=== PATIENT | female | born 1990 | race Caucasian/White ===

== ENCOUNTER 2017-05-19 14:18 | Emergency (ER) | payer BC, OTHER ==
[~2017-05-19] VITALS: Ht 172.7 cm; Wt 127.0 kg
[~2017-05-19 14:18] MED LIST: GUIATUSS AC SY120 ML PO; PROVENTIL HFA6.7 GM INH
== END 2017-05-19 14:43 | disposition home or self-care (01) ==
LOC: ED 14:18
DX: Z00.8 Encounter for other general examination (principal)

== ENCOUNTER 2017-07-03 11:38 | Emergency (ER) | payer BC, OTHER ==
[~2017-07-03] VITALS: Ht 172.7 cm; Wt 127.0 kg
[2017-07-03] MEDS ORDERED: METHYLPREDNISOLO4 M1 PO (13:25)
[2017-07-03] MEDS ORDERED: TESSALON PERLE100 MG PO (13:25)
[2017-07-03] MEDS ORDERED: ZITHROMAX250 MG PO (13:25)
== END 2017-07-03 11:55 | disposition home or self-care (01) ==
LOC: ED 11:38
DX: Z00.8 Encounter for other general examination (principal)

== ENCOUNTER 2017-07-03 12:54 | Emergency (ER) | payer OTHER, BC ==
[~2017-07-03] VITALS: Ht 172.7 cm; Wt 127.0 kg
[2017-07-03] MEDS ORDERED: ZITHROMAX250 MG PO (13:25)
[2017-07-03] MEDS ORDERED: TESSALON PERLE100 MG PO (13:25)
[2017-07-03] MEDS ORDERED: METHYLPREDNISOLO4 M1 PO (13:25)
== END 2017-07-03 13:33 | disposition home or self-care (01) ==
LOC: ED 12:54
DX: J40 Bronchitis, not specified as acute or chronic (principal)
CPT/HCPCS: 99283

== ENCOUNTER 2017-08-10 12:14 | Emergency (ER) | payer OTHER ==
[~2017-08-10] VITALS: Ht 172.7 cm; Wt 127.0 kg
[~2017-08-10 12:14] MED LIST changes: +METHYLPREDNISOLO4 M1 PO; +TESSALON PERLE100 MG PO; +ZITHROMAX250 MG PO
[2017-08-10] MEDS ORDERED: KETOROLAC TROME10 MG PO (12:37)
[2017-08-10] MEDS ORDERED: BACLOFEN10 MG PO (12:37)
== END 2017-08-10 12:45 | disposition home or self-care (01) ==
LOC: ED 12:14
DX: M99.02 Segmental and somatic dysfunction of thoracic region (principal); M62.838 Other muscle spasm; F17.200 Nicotine dependence, unspecified, uncomplicated
CPT/HCPCS: 99283

== ENCOUNTER 2021-03-26 12:57 | Emergency (ER) | payer OTHER ==
[~2021-03-26] VITALS: Ht 172.7 cm; Wt 122.5 kg
[~2021-03-26 12:57] MED LIST changes: +BACLOFEN10 MG PO; +KETOROLAC TROME10 MG PO
--- OUTSIDE RECORDS SUMMARY | 2021-03-26 13:02 | XMS ---
PreManage Notification: MANDI ISIDRO Security Educational Aid Events No recent Security Events currently on file CRITERIA MET - Group Notification - 6 ED Visits in 6 Months - PDMP CARE PROVIDERS Mary Jane Cornelius Community Health Worker 03/18/2020-Current PHONE: [phone] Care Guidelines exist for the following facilities: [facility] ( 03/17/2019 ) Beto VISIT COUNT (12 MO.) [address] [place] TOTAL 14 NOTE: Visits indicate total known visits. ED/UCC VISIT TRACKING (12 MO.) 03/26/2021 12:[address] [facility] [place] TYPE: Emergency COMPLAINT: - HEADACHE 01/21/2021 21:41 Guest of a Guest [place] [facility] [place] TYPE: Emergency COMPLAINT: - constipated DIAGNOSES: - constipated 01/07/2021 09:24 [facility] TYPE: Emergency DIAGNOSES: - CONSTIPATION - Constipation, unspecified 12/16/2020 02:30 [facility] TYPE: Emergency DIAGNOSES: - Anal abscess - general 12/15/2020 22:43 [facility] [place] TYPE: Emergency DIAGNOSES: - Anal abscess - CYST 12/11/2020 17:55 Guest of a Guest [place] [facility] [place] TYPE: Emergency DIAGNOSES: - Other specified diseases of anus and rectum - POSS ABSCESS 12/05/2020 09:00 Guest of a Guest [facility] OR TYPE: Emergency DIAGNOSES: - Carpal tunnel syndrome, right upper limb - HAND PAIN 10/31/2020 14:01 [facility] OR TYPE: Emergency DIAGNOSES: - Contact with and (suspected) exposure to covid-19 - covid testing 09/29/2020 14:05 [facility] OR TYPE: Emergency DIAGNOSES: - Contact with and (suspected) exposure to covid-19 - SHORTNESS OF BREATH, FEVER - Shortness of breath 08/20/2020 12:18 [facility] OR TYPE: Emergency DIAGNOSES: - Contact with and (suspected) exposure to other viral communicable diseases - Scabies - SHORTNESS OF BREATH COVID 19 TEST + SCREENING 05/04/2020 17:08 [facility] TYPE: Emergency COMPLAINT: - COUGH, DIFF BREATHING - WEAKNESS - NASAL CONGESTION - HEADACHE DIAGNOSES: 0. Nasal congestion 1. Other seasonal allergic rhinitis 5. Nasal congestion 6. Nicotine dependence, cigarettes, uncomplicated 04/26/2020 10:50 [facility] [place] TYPE: Emergency DIAGNOSES: - Viral infection, unspecified - +SCREENING/SHORTNESS OF BREATH WEAK 03/31/2020 17:48 [facility] [place] TYPE: Emergency DIAGNOSES: - +SCREENING/HEADACHE, SOB, DIARRHEA, COUGH - Acute upper respiratory infection, unspecified - Contact with and (suspected) exposure to other viral communicable diseases 03/31/2020 17:01 [facility] [place] TYPE: Emergency DIAGNOSES: - +screening/cough, headache, diarrhea, sore throat INPATIENT VISIT TRACKING (12 MO.) No inpatient visits to display in this time frame [email or web address]
[2021-03-26] MEDS ORDERED: SUBOXONE 12 MG1 EACH SL (13:23)
== END 2021-03-26 15:45 | disposition home or self-care (01) ==
LOC: ED 12:57
DX: J06.9 Acute upper respiratory infection, unspecified (principal); Z20.822 Contact with and (suspected) exposure to COVID-19; F17.200 Nicotine dependence, unspecified, uncomplicated; Z88.5 Allergy status to narcotic agent
CPT/HCPCS: 99284; C9803; U0003

== ENCOUNTER 2022-06-01 14:08 | Emergency (ER) | payer OTHER ==
[~2022-06-01] VITALS: Ht 172.7 cm; Wt 159.7 kg
[~2022-06-01 14:08] MED LIST changes: +SUBOXONE 12 MG1 EACH SL
--- OUTSIDE RECORDS SUMMARY | 2022-06-01 14:12 | XMS ---
PreManage Notification: MANDI ISIDRO Security Wire Frame Lampshade Maker Events No recent Security Events currently on file CRITERIA MET - Group Notification CARE PROVIDERS Ashli Mary Jane Community Health Worker 03/18/2020-Current PHONE: [phone] Care Guidelines exist for the following facilities: [facility] ( 03/17/2019 ) Beto VISIT COUNT (12 MO.) 1 [facility] TOTAL 1 NOTE: Visits indicate total known visits. ED/UCC VISIT TRACKING (12 MO.) 06/01/2022 14:10 [facility] [place] TYPE: Emergency COMPLAINT: - SORE THROAT, L EAR PAIN, UPPER CHEST TIGHTNESS INPATIENT VISIT TRACKING (12 MO.) No inpatient visits to display in this time frame [email or web address]
[2022-06-01] MEDS ORDERED: IBUPROFEN200 M1 PO (14:25)
== END 2022-06-01 14:54 | disposition home or self-care (01) ==
LOC: ED 14:08
DX: J06.9 Acute upper respiratory infection, unspecified (principal); F17.200 Nicotine dependence, unspecified, uncomplicated; Z88.5 Allergy status to narcotic agent
CPT/HCPCS: 99283

== ENCOUNTER 2022-07-26 18:38 | Observation (INO) | payer OTHER ==
[~2022-07-26] VITALS: Ht 172.7 cm; Wt 164.0 kg
[~2022-07-26 18:38] MED LIST changes: +DOXYCYCLINE HY100 MG PO; +IBUPROFEN200 M1 PO
--- OUTSIDE RECORDS SUMMARY | 2022-07-26 18:46 | XMS ---
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 ( 03/17/2019 ) Beto VISIT COUNT (12 MO.) 2 [facility] [place] TOTAL 2 NOTE: Visits indicate total known visits. ED/UCC VISIT TRACKING (12 MO.) 07/26/2022 18:39 [facility] [place] TYPE: Emergency COMPLAINT: - SWELLING OF BODY PART 06/01/2022 14:10 [facility] [place] TYPE: Emergency COMPLAINT: - SORE THROAT, L EAR PAIN, UPPER CHEST TIGHTNESS DIAGNOSES: - Nicotine dependence, unspecified, uncomplicated - Allergy status to narcotic agent - Acute upper respiratory infection, unspecified - Acute pharyngitis, unspecified INPATIENT VISIT TRACKING (12 MO.) No inpatient visits to display in this time frame [email or web address]
--- NOTE | 2022-07-26 23:29 | NUR ---
REPORT FROM BHARGAVI KENNEDY RN,
--- NOTE | 2022-07-27 00:39 | NUR ---
THIS RN ASSESSED PT FOR ADMIT LEFT PERIANAL ABCESS - NOT DRAINING, NPO AT THIS TIME, EDUCATED PT ON PLAN OF CARE AND WHAT TO EXPECT FOR PRE OP.
--- NOTE | 2022-07-27 01:11 | NUR ---
PT CALLED, INDEPENDENTLY TO BATHROOM, AND BACK TO BED. CALL LIGHT WITHIN REACH.
--- NOTE | 2022-07-27 07:04 | NUR ---
dr harry in with this rn for exam of pt. plan for surgery today.
--- NOTE | 2022-07-27 08:15 | CONS ---
[facility] [address], [place] [address] Signed DATE OF CONSULTATION: 07/27/2022 CHIEF COMPLAINT: Perianal pain. HISTORY OF PRESENT ILLNESS: Mandi is a 32-year-old obese female, who at the age of 30 had a left perianal abscess drained. She said it has come back. It has been little over a week. She went to the urgent care clinic and was on doxycycline, which helped a little. However, it is now getting worse as she has finished the doxycycline. She came to the emergency room. It is difficult to actually see this on physical exam. Therefore, she had a CT scan performed. There was a left perianal abscess about 3.6 x 1.8 x 3.9 cm. The ER doctor asked if I would admit her as a general surgeon on-call. In the meantime, she has received her Rocephin and Flagyl. She has done well overnight. PAST MEDICAL HISTORY: Fatty liver, small umbilical hernia, intermittent bronchitis and obesity. PAST SURGICAL HISTORY: Incision and drainage of left perianal abscess age 30. SOCIAL HISTORY: She does not smoke or drink. 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 She currently has no PCP, but has had a couple in the past. She prefers the [facility] here in [place], [place]. She is single and has no children. 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 Her mother lives in [place]. Her mother's name is Dee Dee Lay at [phone]. FAMILY HISTORY: Mom had breast cancer. REVIEW OF SYSTEMS: She had 10 systems reviewed and no new findings. ALLERGIES: Codeine gives her hives. MEDICATIONS: 1. Doxycycline 100 mg p.o. b.i.d. 2. Ibuprofen p.r.n. 3. Albuterol p.r.n. PHYSICAL EXAMINATION: Electronically Signed By: MAXINE MATHEWS MD 07/27/22 0815 PATIENT NAME: MANDI ISIDRO CONSULTATION DATE OF : 89 REPORT #: [id number] PHYSICIAN: MAXINE MATHEWS MD PCP: NO PRIMARY CARE PHYSICIAN REPORT IS CONFIDENTIAL AND NOT TO BE RELEASED WITHOUT AUTHORIZATION [facility] [address], [place] [address] Signed VITAL SIGNS: Blood pressure is 113/61, heart rate is 70, respiratory rate 15, temperature is 97.8, 96% on room air. She is 5 feet 8 inches at 164 kg with a body mass index of 55. GENERAL: Mandi is a 32-year-old female lying in the left lateral decubitus position. She is very obese. She seems to be very cooperative. She is not in any acute distress. LUNGS: Clear to auscultation bilaterally. HEART: Regular rate and rhythm without murmurs. ABDOMEN: Obese. With our nurse in the room, we had her roll into the right lateral decubitus position and we can see her previous I and D scar. Interestingly, we cannot really see or feel an induration, but she can certainly point to it with her hand and it is consistent with the CT scan. She said it is actually up towards the vagina a little more on this occasion. LABORATORY DATA: White blood cell count 10, hemoglobin 13, neutrophils 69. Electrolytes unremarkable. UA showed a specific gravity greater than 1.030. Liver function tests are negative. COVID is negative. Albumin 3.3. Beta-hCG negative. RADIOGRAPHIC STUDIES: CT scan of the abdomen and pelvis is reviewed along with the report. She has a small umbilical hernia and there is a left perianal abscess measuring 3.6 x 1.8 x 3.9 cm. ASSESSMENT AND PLAN: Mandi is a 32-year-old female who presents with recurrent left perianal/perineal abscess. She has been admitted and we are going to take her to the operating room later this morning for exam under anesthesia and incision and drainage. I have reviewed this with her in detail. We reviewed the concept of an anal fistula. She understands these have a propensity to recur. There is risk including, but not limited to bleeding, infection, scarring, change in contour of the skin, and need for additional surgeries and recurrent abscesses. She has expressed understanding and would like to proceed. Maxine Mathews MD ALB/MODL /[id number] cc: Maxine Mathews MD Electronically Signed By: MAXINE MATHEWS MD 07/27/22 0815 PATIENT NAME: MANDI ISIDRO CONSULTATION DATE OF : 89 REPORT #: [id number] PHYSICIAN: MAXINE MATHEWS MD PCP: NO PRIMARY CARE PHYSICIAN REPORT IS CONFIDENTIAL AND NOT TO BE RELEASED WITHOUT AUTHORIZATION [facility] [address] [place], [place] [address], [place] [address] Signed Copies: MAXINE MATHEWS MD ~ Electronically Signed By: MAXINE MATHEWS MD 07/27/22 0815 PATIENT NAME: WARREN ISIDROTyler GLEASON CONSULTATION DATE OF : 89 REPORT #: [id number] PHYSICIAN: MAXINE MATHEWS MD PCP: NO PRIMARY CARE PHYSICIAN REPORT IS CONFIDENTIAL AND NOT TO BE RELEASED WITHOUT AUTHORIZATION
[2022-07-27] MEDS ORDERED: VENTOLIN HFA18 GM INH (08:16)
--- NOTE | 2022-07-27 08:23 | NUR ---
OVER TO PATIENT ROOM. LIGHTS OFF PATIENT SLEEPING AND DOES NOT AWAKEN TO VOICE. WILL RETURN TO COMPLETE ASSESSMENT.
--- NOTE | 2022-07-27 08:37 | NUR ---
MORNING ASSESSMENT COMPLETE. PT C/O 02/17 PERINEAL PAIN, GIVEN PRN MEDICATION, SEE EMAR. ASSISTED PT TO DO PRE OP WIPE DOWN AND CHANGE TO CLEAN GOWN, JEWELRY REMOVED. PT VOIDED AND BACK TO BED. PT DENIES FURTHER NEEDS AT THIS TIME. CALL LIGHT IN REACH.
[2022-07-27] MEDS ORDERED: TYLENOL325 MG PO (09:06)
--- NOTE | 2022-07-27 09:07 | NUR ---
MED REC COMPLETE
--- NOTE | 2022-07-27 11:10 | NUR ---
07/27/22 1110 Blane Morris REORIENTED TO TIME AND SITUATION ON ENTRY TO PACU. DEINES PAIN OR NAUSEA.
--- NOTE | 2022-07-27 11:35 | NUR ---
PT BACK FROM OR, REPORT RECIEVED, ALL QUESTIONS ANSWERED. PT ALERT AND ORIENTED X4. DENIES PAIN AT THIS TIME. VITAL SIGNS STABLE. ON ROOM AIR. DRESSING TO ZENIA AREA CDI. IV FLUIDS RESTARTED, FRESH ICE WATER PROVIDED. SO IN ROOM. PT DENIES FURTHER NEEDS AT THIS TIME. CALL LIGHT IN REACH.
--- NOTE | 2022-07-27 12:40 | NUR ---
POST OP ASSESSMENT: PT SITTING UPRIGHT IN BED, FINISHED 100% LUNCH, DENIES NAUSEA. DENIES PAIN AT THIS TIME. SMALL AMOUNT OF SEROSANG DRAINAGE NOTED TO PERINEAL DRESSING. VSS. SO AT BEDSIDE. CALL LIGHT IN REACH. PT DENIES FURTHER NEEDS AT THIS TIME.
--- NOTE | 2022-07-27 12:52 | NUR ---
PT C/O 01/17 PERINEAL AND BACK PAIN. GIVEN RPN TYLENOL PER REQUEST. DENIES FURTHER NEEDS AT THIS TIME. CALL LIGHT IN REACH.
--- NOTE | 2022-07-27 14:10 | NUR ---
Admin dilaudid 0.5mg IV admin for reports of 6/10 saul area pain.
--- NOTE | 2022-07-27 14:11 | NUR ---
PT TAKEN TO OR FOR SURGERY. WILL FOLLOW
--- NOTE | 2022-07-27 14:35 | NUR ---
PT UP TO RESTROOM AND BACK TO BED. ABD PAD CHANGED AND PT PROVIDED MESH UNDERWEAR. MODERATE SERSANG DRAINAGE ON ABD PAD, PACKED DRESSING INTACT. VSS. PT DENIES NEED FOR PAIN INTERVENTION AT THIS TIME. CALL LIGHT IN REACH.
--- NOTE | 2022-07-27 15:00 | NUR ---
Spoke with Ana María and her BF. She lives in an apartment with an elevator. Does not have issues getting in or out of her house. Has had Perianal abcess in the past. States it is painful, but less pain now that it is drained. She does not use any DME. Boyfriend will shop, cook, and clean house. She does not have any financial issues and she drives. Plans on dc to home and would like to go home tonight if Dr. Bunch will agree. Encouraged to not zavala out if she doesn't feel 100%. Pt needs a pcp and I let her know [facility] She doesn't care where, states she has not been able to establish care. Let her know I will work on this.
--- NOTE | 2022-07-27 16:17 | NUR ---
[facility]. Pt scheduled for Aug 02 at 9 am for pt to establish care.
--- NOTE | 2022-07-27 16:44 | NUR ---
[facility] to [facility].
--- NOTE | 2022-07-27 22:30 | NUR ---
IN PT ROOM FOR ASSESSMENT AND AUTO TRANSMISSION TECHNICIAN. PT LAYING IN BED WITH SIGNIFICANT OTHER AT BEDSIDE. PT REPORTS 4/10 PAIN IN GLUTEAL REGION, 2/2 TITRATED DOSE GIVEN TO PT OF PRN NORCO (SEE EMAR). PT ALERT AND ORIENTED X4. LUNGS CLEAR THROUGHOUT, PULSES PRESENT X4. BOWEL TONES ACTIVE X4. PT O2 SATS >90% RA VIA CPOX FOR MONITORING. PT REPORTS NO NAUSEA, N/T, DIZZINESS, SOB AT THIS TIME. MESH UNDERWEAR W/PAD IN PLACE. GLUTEAL REGION HAS SCANT BLEEDING W/YELLOW TUBE IN PLACE. CALL LIGHT WITHIN REACH, NO FURTHER NEEDS AT THIS TIME.
--- NOTE | 2022-07-28 01:05 | NUR ---
IN ROOM D/T PT UP TO USE RESTROOM. PT I&D SITE HAS SCANT RED DRAINAGE INTO PAD AND A COUPLE DROPS OF BLOOD ON FLOOR. NEW PAD PLACED AND MESH UNDERWEAR IN PLACE. PT NOW BACK IN BED, PILLOW PLACED UNDER RT SIDE TO RELIEVE PRESSURE ON GLUTEAL REGION. PT STILL REPORTS PAIN /10, PRN DILAUDID GIVEN. CALL LIGHT WITHIN REACH, NO FURTHER NEEDS AT THIS TIME.
--- NOTE | 2022-07-28 01:45 | NUR ---
IN ROOM TO REASSESS PAIN, pt FOUND AWAKE AND RESTING IN BED, pt REPORTS PAIN IS STILL THERE, "BUT BETTER". DENEIS ADDITIONAL NEEDS, NO DISTRESS NOTED. CPOX AT BEDSIDE. SPO2 MID TO UPPER 90'S, HR 80'S. CALL LIGHT IN REACH AND BOYFRIEND IN ROOM.
--- NOTE | 2022-07-28 03:00 | NUR ---
IN PT ROOM FOR BEEPING CPOX. LOWERED SENSITIVITY SETTING FOR SPD ALARM. PT RESTING W/EYES CLOSED. PARTNER ON COUCH SLEEPING. CALL LIGHT WITHIN REACH, NO FURTHER NEEDS AT THIS TIME.
--- NOTE | 2022-07-28 05:08 | NUR ---
call light answered, iv pump alarming. issue resolved and iv fluids infusing as directed. iv site wnl, no additional needs or concerns. call light in reach.
--- NOTE | 2022-07-28 05:28 | NUR ---
IN PT ROOM FOR ASSESSMENT AND PT AMBULATING TO BATHROOM. SCANT SEROSANGUINOUS DRAINAGE IN PAD AND A COUPLE DROPS ON TOILET. NEW PAD APPLIED IN MESH UNDERWEAR. PT BACK IN BED CRYING IN PAIN. PRN NORCO GIVEN (SEE EMAR). PROVIDED PT W/ICE PACK FOR COMFORT AND PILLOW BEHIND RT SIDE FOR COMFORTABLE POSITIONING D/T WOUND. FRESH WATER PROVIDED. CALL LIGHT WITHIN REACH, NO FURTHER NEEDS AT THIS TIME.
--- NOTE | 2022-07-28 06:35 | OR ---
[facility] [address] [place], [place] [address] Signed DATE OF OPERATION: 07/27/2022 SURGEON: Maxine Bunch MD PREOPERATIVE DIAGNOSIS: Recurrent left anterolateral perianal abscess. POSTOPERATIVE DIAGNOSIS: Recurrent left anterolateral perianal abscess. PROCEDURES: 1. Incision and drainage of left anterolateral perianal abscess. 2. Placement of seton stitch. 3. Deep wound cultures. ESTIMATED BLOOD LOSS: None. INDICATIONS: Mandi is a 32-year-old female with a body mass index of 55. About two years ago she spoke of incision and drainage of a left perianal abscess. She has felt something recurrent, but seemed very deep and headed towards the vagina. She had been to the urgent care clinic and given doxycycline. That seemed to help, but of course when she finished antibiotics, the pain and swelling came back. She came to emergency room last night. Interestingly, the overlying skin seemed to be quite healthy. There was an obvious area of erythema or induration. One could see an oblique incision and drainage scar from before. She was given Rocephin and Flagyl. I was asked to admit her as a general surgeon on-call. I had met with Mandi this morning and we reviewed the above findings. I also looked at her CT scan and she does have a 3.6 x 1.8 x 3.9 cm cavity in that left perianal area. I explained to her the concept of perianal abscesses and anal fistulas. We also reviewed the idea of incision and drainage with placement of a seton stitch and more definitive treatment at a later date. She understands the expected intraop and postop course. There is risk to the surgery including, but not limited to bleeding, infection, scarring, change in contour of the skin as well as recurrent pain, perianal abscesses, the fistula in ANO as well as fecal incontinence. She had expressed understanding and wished to proceed. PROCEDURE IN DETAIL: We had met with Mandi in our preop area. Our anesthesia provider provided a saddle block. She was taken in the operating room and placed in the prone herman-knife position Electronically Signed By: MAXINE BUNCH MD 07/28/22 0635 PATIENT NAME: MANDI ISIDRO OPERATIVE REPORT DATE OF : [birth year] REPORT #: [id number] PHYSICIAN: MAXINE BUNCH MD PCP: NO PRIMARY CARE PHYSICIAN REPORT IS CONFIDENTIAL AND NOT TO BE RELEASED WITHOUT AUTHORIZATION [facility] [address] [place] [id number] Signed with appropriate padding and monitoring. She was given monitored anesthesia care by our anesthesia provider. She had been given Lovenox earlier today. She was prepped and draped in the usual sterile fashion. We could see the previous oblique surgical scar to the left of her anus and somewhat toward the vagina. We had to place our index finger into the rectum and on the outside of the skin in order to find this abscess. It is fairly deep considered her body mass index. With some gentle pressure, we could see pus coming right through the anterior midline. The rest of the dentate line was unremarkable with inspection with the half-crenshaw retractors. There was no external opening. We made a radial incision at the 7 o'clock position at the left anterolateral position. We carried this down through the tissues and we could see just lateral to what was felt to be the abscess cavity with our index finger in the rectum and one out on the skin. We used our pean clamp and we broke into the abscess cavity and we took our deep wound cultures. The wound was irrigated and suctioned out until clear. All loculations were broken up with the index finger. I turned my index finger up toward the anterior midline and there was just a little bit of tissue there between my index finger and anterior midline, maybe a cm most. We went ahead and placed a yellow vessel loop through this area and we held that in place with three interrupted silk ties on the vessel loop. The vessel loop was then cut to length. Full strength Dakin's soaked gauze was then packed into the wound. Dry ABD and mesh underwear were then placed over that. We rotated Mandi into the supine position on her hospital bed. We took her into recovery room in stable condition. Maxine Bunch MD ALB/MODL /[id number] cc: Maxine Bunch MD Copies: MAXINE BUNCH MD ~ Electronically Signed By: MAXINE BUNCH MD 07/28/22 0635 PATIENT NAME: MANDI ISIDRO OPERATIVE REPORT DATE OF : [birth year] REPORT #: [id number] PHYSICIAN: MAXINE BUNCH MD PCP: NO PRIMARY CARE PHYSICIAN REPORT IS CONFIDENTIAL AND NOT TO BE RELEASED WITHOUT AUTHORIZATION
--- NOTE | 2022-07-28 07:25 | NUR ---
report from renae yañez, pt sleepy - plan for dc home later today call light in reach - denies needs.
[2022-07-28] MEDS ORDERED: HYDROCODON-ACE1 EAC8 PO (08:35)
[2022-07-28] MEDS ORDERED: AMOX TR-K CLV1 EAC1 PO (08:43)
--- NOTE | 2022-07-28 09:50 | NUR ---
PER AM MEETING DISCHARGE ORDERS RECVD FOR PATIENT. NO FURTHER NEEDS AT THIS TIME.
--- NOTE | 2022-07-28 11:07 | NUR ---
JER THOMAS GAUZE IN ZENIA RECTAL AREA - WNL - PT WAS IN GREAT PAIN - MEDICATED WITH NORCO PO - DC INSTR REVIEW - ENCOURAGED BID AND PRN SHOWERS - OK FOR HAND HELD SHOWER HEAD, PT GREATFUL FOR CARE AND PRINTED EDUCATION REVIEWED.
--- NOTE | 2022-07-28 13:13 | DS ---
[facility] [address] [facility] [place], [place] [address] Signed ADMISSION DATE: 07/26/2022 DISCHARGE DATE: 07/28/2022 FINAL DIAGNOSIS: Recurrent left perianal abscess (7 o'clock) PROCEDURES: 1. Incision and drainage of left perianal abscess. 2. Placement of seton stitch. 3. Deep wound cultures. HISTORY OF PRESENT ILLNESS: Mandi is a 32-year-old obese female, who came about two years ago apparently for drainage of her left perianal abscess. For some reason, her incision was made obliquely. She came back with a week history of increasing pain deep in that same area headed towards the vagina. She had been to urgent care clinic and the doxycycline did help a little. When she finished the doxycycline of course, the pain continued. She therefore came to the emergency room. One could not definitively visualize perianal abscess, but she could certainly feel it deep to that area and it was a bit indurated as well. White count was 10, and a CT scan confirmed the abscess cavity at 3.6 x 1.8 x 3.9 cm. I have been asked to admit her as a general surgeon on-call. She initially received Rocephin and Flagyl. HOSPITAL COURSE: I met with Mandi that morning we took her to the operating room and made a radial incision at the 7 o'clock position. Indeed, it was a bit deep and we had used our index finger in the anal canal as well as out on the skin to work our way down to the abscess cavity. We could see just a little bit of pus coming through the dentate line directly in the anterior midline. We opened up this abscess cavity and drained out the pus. We took our deep wound cultures. We placed a yellow vessel loop for our seton stitch right through the anterior midline through the abscess cavity. We packed the wound with Dakin soaked gauze. She has been kept overnight and has done well. She has required some hydrocodone. She has remained on cefepime and Flagyl. Her wound cultures are still pending of course. At this point, she is doing quite well with tolerating her diet and her activities of daily living. We are going to be discharging her to home. DISCHARGE PLANS AND MEDICATIONS: Mandi go home with a prescription for Augmentin 875 mg one tablet p.o. b.i.d. for seven days. We will give her Elkins 10/325 one tablet p.o. q.6 hours p.r.n. for severe postoperative pain. We will dispense 25 tablets with no refills. She can use Tylenol, ibuprofen, or Aleve as needed for ipty-tf-stnjfjgm postoperative pain. She can purchase Electronically Signed By: MAXINE BUNCH MD 07/28/22 1313 PATIENT NAME: MANDI ISIDRO DISCHARGE SUMMARY DATE OF : [birth year] REPORT #: [id number] PHYSICIAN: MAXINE BUNCH MD PCP: NO PRIMARY CARE PHYSICIAN REPORT IS CONFIDENTIAL AND NOT TO BE RELEASED WITHOUT AUTHORIZATION [address] [address] Signed that [id number]. She has not had a bowel movement for seven days because she is afraid. She does have MiraLAX at home. She is going to use that to help her initiate her bowel movements. She is going to cover the area with a dry Angy-Pad and underwear. She can shower and bathe with soap water directly into the wound. I will have her back in the office in 7 to 10 days for followup. She has expressed understanding, agrees with the above plan. Maxine Bunch MD ALB/MODL /[id number] cc: Maxine Bunch MD Patient Chart Copies: MAXINE BUNCH MD ~ Electronically Signed By: MAXINE BUNCH MD 07/28/22 1313 PATIENT NAME: MANDI ISIDRO DISCHARGE SUMMARY DATE OF : [birth year] REPORT #: [id number] PHYSICIAN: MAXINE BUNCH MD PCP: NO PRIMARY CARE PHYSICIAN REPORT IS CONFIDENTIAL AND NOT TO BE RELEASED WITHOUT AUTHORIZATION
--- NOTE | 2022-07-29 13:52 | EKG ---
[facility] [address] [facility] [place] [address] Signed Normal sinus rhythm Normal ECG No previous ECGs available Confirmed by JESSICA SANTACRUZ MD ([id number]) on 07/29/2022 1:52:06 PM Electronically Signed By: JESSICA SANTACRUZ MD 07/29/22 1352 PATIENT NAME: MANDI ISIDRO Electrocardiogram DATE OF : [birth year] PHYSICIAN: JESSICA SANTACRUZ MD REPORT #: [id number] REPORT IS CONFIDENTIAL AND NOT TO BE RELEASED WITHOUT AUTHORIZATION
== END 2022-07-28 11:18 | disposition home or self-care (01) ==
LOC: ED 18:38 → MS 18:40
PROVIDERS: ADMIT Colon & Rectal Surgery; ATTEND Colon & Rectal Surgery
PROC: 0D9Q0ZZ Drainage of Anus, Open Approach (ICD-10-PCS; principal; 2022-07-27 10:00)
DX: K61.0 Anal abscess (principal); E66.9 Obesity, unspecified; F15.11 Other stimulant abuse, in remission; F17.200 Nicotine dependence, unspecified, uncomplicated; Z88.5 Allergy status to narcotic agent; Z68.43 Body mass index [BMI] 50.0-59.9, adult; Z20.822 Contact with and (suspected) exposure to COVID-19
CPT/HCPCS: 36415; 62322; 74177; 80053; 81003; 84703; 85025; 87070; 87075; 87205; 93005; 93010; 94762; A9270; C9113; J0696; J1170; J1650; J1885; J2001; J2250; J2405; J2704; J7030; J7121; Q9967; U0003

== ENCOUNTER 2025-07-22 15:26 | Observation (INO) | payer SELFPAY ==
[~2025-07-22] VITALS: Ht 172.7 cm; Wt 115.8 kg
[~2025-07-22 15:26] MED LIST changes: +AMOX TR-K CLV1 EAC1 PO; +HYDROCODON-ACE1 EAC8 PO; +TYLENOL325 MG PO; +VENTOLIN HFA18 GM INH
--- OUTSIDE RECORDS SUMMARY | 2025-07-22 15:32 | XMS ---
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 ED/UCC VISIT TRACKING (12 MO.) 07/22/2025 15:26 JUANPABLO Weathers OR TYPE: Emergency COMPLAINT: - ABD PAIN INPATIENT VISIT TRACKING (12 MO.) No inpatient visits to display in this time frame [email or web address]
[2025-07-22] MEDS ORDERED: SEVOFLURANE 250 ML BTL INH ONE (16:02)
[2025-07-22 16:27] LABS: BASOPHILS 0.2 % (0.1-1.2); EOSINOPHILS 0.8 % (0.7-5.8); LYMPHOCYTES 26.7 % (19.3-51.7); MCH 30.4 PG (25.6-32.2); MCHC 34.4 g/dL (32.2-35.5); MCV 88.3 fL (79.4-94.8); MONOCYTES 3.8 % (4.7-12.5); NEUTROPHILS 68.1 % (34.0-71.1); RBC 4.44 M/uL (3.93-5.22)
[2025-07-22] MEDS ORDERED: KETOROLAC TROMETHAMINE 15 MG/ML VIAL IV ONE (16:30)
[2025-07-22 16:37] LABS: ALT (SGPT) 16.0 U/L (14-59); AST (SGOT) 14.0 U/L (15-37); GLOMERULAR FILTRATION RATE,EST 93.0 mL/min (>60); PROTEIN, TOTAL 7.6 g/dL (6.4-8.2); UREA NITROGEN 14.0 mg/dL (7-18)
[2025-07-22] MEDS ORDERED: HYDROmorphone HCL 1 MG/ML SYR IV ONE ×2 (17:00→18:15)
[2025-07-22] MEDS ORDERED: LACTATED RINGER'S 1,000 ML IV SCH ×2 (17:00→18:30)
[2025-07-22] MEDS ORDERED: FAMOTIDINE 20 MG/ 2 ML VIAL IV ONE (17:15)
[2025-07-22] MEDS ORDERED: MEROPENEM 1,000 MG in SODIUM CHLORIDE 0.9% 100 ML IV ONE ×2 (17:45→18:30)
[2025-07-22] MEDS ORDERED: KETOROLAC TROMETHAMINE 30 MG/ML VIAL IV PRN ×2 (18:30→20:45)
[2025-07-22] MEDS ORDERED: MORPHINE SULFATE 10 MG/ML VIAL IV PRN (18:30)
[2025-07-22] MEDS ORDERED: ROCURONIUM BROMIDE 50 MG/5 ML SYR ONE (18:45)
[2025-07-22] MEDS ORDERED: LIDOCAINE HCL 2% 5 ML SDV ONE (18:46)
[2025-07-22] MEDS ORDERED: fentaNYL citrate 100 MCG/2 ML VIAL ONE (18:50)
[2025-07-22] MEDS ORDERED: POTASSIUM CHLORIDE 100 ML IV ONE (19:11)
[2025-07-22] MEDS ORDERED: KETOROLAC TROMETHAMINE 30 MG/ML VIAL ONE (19:22)
[2025-07-22] MEDS ORDERED: DEXAMETHASONE SOD PHOS 4 MG/ML VIAL ONE (19:22)
--- OUTSIDE RECORDS SUMMARY | 2025-07-22 19:33 | XMS ---
PreManage Notification: MANDI ISIDRO Security Repairer Helper Events No recent Security Events currently on file CRITERIA MET - Group Notification CARE PROVIDERS Mak Hitchcock Community Health Worker 03/18/2020-Current PHONE: [phone] -, Ben- Dentist: Development Professional [facility] PHONE: [phone] Care Guidelines exist for the following facilities: [facility] ( 03/12/2017 ) Beto VISIT COUNT (12 MO.) 1 JUANPABLO Santiago TOTAL 1 NOTE: Visits indicate total known visits. ED/UCC VISIT TRACKING (12 MO.) 07/22/2025 15:26 JUANPABLO [facility] OR TYPE: Emergency COMPLAINT: - INCARCERATED STRANGULATED UMBILICAL HERNIA W SB INPATIENT VISIT TRACKING (12 MO.) 07/22/2025 15:29 JUANPABLO Weathers OR TYPE: Observation COMPLAINT: - INCARCERATED STRANGULATED UMBILICAL HERNIA W SB [email or web address]
[2025-07-22] MEDS ORDERED: ACETAMINOPHEN 1,000 MG/100 ML VIAL ONE (19:34)
[2025-07-22] MEDS ORDERED: HYDROmorphone HCL 1 MG/ML SYR IV PRN (19:45)
[2025-07-22] MEDS ORDERED: IBLOOD GLUCOSE TEST STRIP 1 EA TEST VI PRN (19:45)
[2025-07-22] MEDS ORDERED: fentaNYL citrate 50 MCG/ML SDV IV PRN (19:45)
[2025-07-22] MEDS ORDERED: NALOXONE HCL 0.4 MG SYR IV PRN (19:45)
[2025-07-22] MEDS ORDERED: SUGAMMADEX SODIUM 200 MG/2 ML ML ONE (20:11)
--- NOTE | 2025-07-22 20:35 | NUR ---
07/22/252034 Mera Ontiveros 2025-PATIENT ARRIVED TO PACU ON 6L MASK NONAROUSABLE ORAL AIRWAY IN PLACE RN DOING JAW TILT TO MAINTAIN OPEN AIRWAY. IVF INFUSING. SR HR 70'S. ABDOMEN INCISION INTACT. 2026-PATIENT REACTIVE TO VERBAL STIMULI OPENING EYES ORAL AIRWAY REMOVED. ENCOURAGED DEEP BREATHING MOVES ALL EXTREMITIES. ORIENTED TO PACU AND SURROUNDINGS. 2034-PATIENT SLEEPING WTIH MOUTH OPEN 6L MASK RR EVEN 100%
[2025-07-22] MEDS ORDERED: IBUPROFEN 600 MG TAB PO PRN (20:45)
[2025-07-22] MEDS ORDERED: ACETAMINOPHEN 500 MG TAB PO PRN (20:45)
[2025-07-22] MEDS ORDERED: OXYCODONE HCL 5 MG TAB PO PRN (20:45)
[2025-07-22] MEDS ORDERED: FAMOTIDINE 20 MG/ 2 ML VIAL IV SCH (21:00)
--- NOTE | 2025-07-22 21:05 | NUR ---
RECEIVED REPORT FROM VANESA RANDLE, PT VSS, ASSISTED TO THE BATHROOM/BACK TO BED. SCDS IN PLACE, CPOX ON, ADMIT ASSESSMENT COMPLETE. ADMIT FROM PACU ORIENTED TO ROOM, GIVEN FRESH WATER, FIANCE AT BEDSIDE, CALL LIGHT WITHIN REACH.
[2025-07-22 21:15] VITALS: BP 123/64
[2025-07-22 21:54] VITALS: BP 123/64
[2025-07-22 22:00] VITALS: BP 118/63
--- NOTE | 2025-07-22 22:00 | NUR ---
VS DOCUMENTED, IV FLUIDS RUNNING, PT DENIES ANY NEEDS, CALL LIGHT WITHIN REACH.
[2025-07-22 22:01] VITALS: BP 118/63
[2025-07-22 22:49] VITALS: BP 109/69
--- NOTE | 2025-07-22 22:50 | NUR ---
VS TAKEN, PT ASSISTED IN TURNING ON TV. CRACKERS AND JELLO GIVEN, NO NAUSEA REPORTED. PT REPORTS PAIN 4/10 IN ABDOMEN, PRN PAIN MED GIVEN. CALL LIGHT WITHIN REACH, NO OTHER NEEDS STATED.
[2025-07-22 23:51] VITALS: BP 114/75
--- NOTE | 2025-07-22 23:55 | NUR ---
VS TAKEN, PT ASKING FOR MORE CRACKERS, GIVEN. NO NAUSEA REPORTED, CALL LIGHT WITHIN REACH.
[2025-07-23] VITALS (8 sets, daily range): BP systolic 116–131; BP diastolic 60–70
--- NOTE | 2025-07-23 01:16 | NUR ---
VS TAKEN, PT REPORTING NO NEEDS AT THIS TIME, CALL LIGHT WITHIN REACH.
--- NOTE | 2025-07-23 03:12 | NUR ---
CALL LIGHT ANSWERED. PT NEEDED TO USE BATHROOM. PERSONNEL MANAGER SBA TO BATHROOM. URINE SAMPLE COLLECTED AND SENT TO LAB. PT ASSISTED BACK TO BED. PT STATES NO FURTHER NEEDS AT THIS TIME. CALL LIGHT WITHIN REACH.
[2025-07-23 03:16] LABS: BLOOD/HGB, URINE NEGATIVE (Negative); KETONE, URINE NEGATIVE (Negative); LEUK ESTERASE, URINE NEGATIVE (negative); NITRITE, URINE NEGATIVE (negative)
--- NOTE | 2025-07-23 03:30 | NUR ---
PT LAYING IN BED WITH EYES CLOSED, UNLABORED BREATHING, SCDS ON, CALL LIGHT WITHIN REACH.
--- NOTE | 2025-07-23 05:20 | NUR ---
VS TAKEN, PT DENIES PAIN, NEW WATER GIVEN, SURGICAL SITE ASSESSED, DIME SIZE DRY DRAINAGE NOTED, DRESSING OTHERWISE INTACT. CALL LIGHT WITHIN REACH.
--- NOTE | 2025-07-23 07:20 | NUR ---
RECIEVED REPORT FROM JER URBINA AND JER DONOHUE. PT RESTING IN BED WITH EYES CLOSED, WAKES TO THIS RN IN ROOM. PT REQUESTS PAIN MEDICATION AT THIS TIME, GIVEN. PT STATES NO FURTHER NEEDS AT THIS TIME. CALL LIGHT WITHIN REACH.
--- NOTE | 2025-07-23 09:11 | NUR ---
UR CLINICAL REVIEW: MCG SHOWS NONACTIVE ENCOUNTER, MEETS HERNIA REPAIR CRITERIA INCARCERATED, PROBABLE STRANGULATED UMBILICAL HERNIA REQUIRING SURGICAL REPAIR. IV FLUIDS, TOLERATING PO PAIN CONTROL POST OPERATIVELY. SELF-PAY OBS 07/22/25 @ 1825 ORDER MATCHES REG NO AUTH REQUIRED, SELF-PAY LIKELY TO DC HOME TODAY IF ALL POST OP CRITERIA MET 07/24/25
--- NOTE | 2025-07-23 10:30 | NUR ---
PT REFUSES AMBULATING, BRUSHING TEETH, WASHING FACE AT THIS TIME. PT DENIES CURRENT NEEDS, CALL LIGHT WITHIN REACH.
--- NOTE | 2025-07-23 11:20 | NUR ---
Spoke with Ana María. She lives in an apartment with an elevator. She denies any issues getting in or out of her apartment. She lives with her spouse. She does not use any DME. 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 Her pcp has also moved. I will add her to the list for a PCP at [facility]. I will also contact Yovana in [facility] to check if she qualifies for the OHP. Pt denies using food stamps of food issues. She denies safety concerns. She is waiting to see Dr. Wagner and will dc to home today.
[2025-07-23] MEDS ORDERED: MOTRIN IB200 MG PO (11:29)
--- NOTE | 2025-07-23 11:31 | HP ---
[facility] [address] [place], [place] [address] Signed ADMISSION DATE: 07/22/2025 REASON FOR ADMISSION: Incarcerated, probably strangulated umbilical hernia. HISTORY: This 35-year-old somewhat obese white woman presented to the emergency room at approximately 4:20 p.m. and evaluated by Dr. Beck with severe abdominal pain in the region of the umbilicus. The patient is well known to have an umbilical hernia which has not previously been repaired. She was noted to have constant pain and severe stabbing-type character to her pain with associated nausea and vomiting. She had eaten supposedly earlier and had regurgitated all of the food. She presented within 1 hour of the abdominal pain beginning. Evaluation included a CT scan of the abdomen, which confirmed a fascial defect at the umbilicus as well as herniated small bowel but without sign of bowel obstruction proper. White count was only at 10.52. The patient has had no surgery at the umbilicus. PAST MEDICAL HISTORY: Notable for: 1. Methamphetamine abuse, having completed rehab. 2. She is an everyday smoker. ALLERGIES: She has allergy to codeine. MEDICATIONS: At home have included: 1. Ibuprofen. 2. Albuterol. 3. Tylenol. 4. Nicholson. 5. Augmentin. SOCIAL HISTORY: The patient has a significant other at home. 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 REVIEW OF SYSTEMS: Electronically Signed By: JARED CARRILLO MD 07/23/25 1133 PATIENT NAME: MANDI ISIDRO HISTORY AND PHYSICAL DATE OF : [birth year] REPORT #: [id number] PHYSICIAN: JARED CARRILLO MD PCP: DENNY CORNELIUS MD REPORT IS CONFIDENTIAL AND NOT TO BE RELEASED WITHOUT AUTHORIZATION [facility] [address] [place], [place] [address] Signed Denies any shortness of breath or chest pain. She has had no further nausea or vomiting. She last ate at supposedly [employer] here at 3 p.m. (It is now nearly 7 p.m.). She denies any dysuria, hematuria. Denies any hematemesis or blood per rectum. PHYSICAL EXAMINATION: GENERAL: Obese-appearing white woman with BMI of 39.4. NECK: Trachea is midline. CHEST: Clear. HEART: Regular without murmur. ABDOMEN: Somewhat obese. There is a prominent obvious umbilical hernia which is markedly tender to examination, and the reduction is not possible. EXTREMITIES: Show no clubbing, cyanosis, or edema. She has multiple tattoos over her body. LAB STUDIES: With a white count of 10.52, platelets 269,000, hematocrit 39.2. Potassium is slightly low at 3.1, creatinine 0.85. Liver enzymes are normal. Beta-hCG negative. I reviewed the CT scan in detail confirming the aforementioned findings with a relatively large segment of small bowel at the umbilicus consists with incarcerated umbilical hernia. ASSESSMENT: The patient has incarcerated, probably strangulated umbilical hernia, for which repair is certainly needed promptly. Discussed the pathophysiology of the problem with her in detail. She understands. Would recommend general anesthesia, repair of the hernia, possibly with implantation of mesh depending on local findings. The risks of bleeding, infection, need for bowel resection and other unforeseen complications were reviewed in detail with her. She understands and wished to proceed. MD TANVIR Jj/MODL /[id number] Electronically Signed By: JARED CARRILLO MD 07/23/25 1131 PATIENT NAME: MANDI ISIDRO HISTORY AND PHYSICAL DATE OF : [birth year] REPORT #: [id number] PHYSICIAN: JARED CARRILLO MD PCP: DENNY CORNELIUS MD REPORT IS CONFIDENTIAL AND NOT TO BE RELEASED WITHOUT AUTHORIZATION [facility] [address] [place], [place] [address] Signed cc: Dr. Scott Beck ER Copies: ~ Electronically Signed By: JARED CARRILLO MD 07/23/25 1131 PATIENT NAME: MANDI ISIDRO HISTORY AND PHYSICAL DATE OF : [birth year] REPORT #: [id number] PHYSICIAN: JARED CARRILLO MD PCP: DENNY CORNELIUS MD REPORT IS CONFIDENTIAL AND NOT TO BE RELEASED WITHOUT AUTHORIZATION
--- NOTE | 2025-07-23 11:31 | OR ---
[facility] [address] [place], [place] [address] Signed DATE OF OPERATION: 07/22/2025 SURGEON: Jared Carrillo MD PREOPERATIVE DIAGNOSES: 1. Incarcerated umbilical hernia. 2. Obesity. POSTOPERATIVE DIAGNOSES: 1. Incarcerated umbilical hernia (small bowel) fascial defect 4.2 cm. 2. Obesity. PROCEDURES: 1. Repair of incarcerated umbilical hernia, 4.2 cm fascial defect. 2. Implantation of Prolene mesh in an underlay technique. ANESTHESIA: General endotracheal, David Chaudhary CRNA with local 10 mL of 0.25% Marcaine with epinephrine. INDICATION: This 35-year-old woman presented to the emergency room late this afternoon with complaints of severe pain in the umbilicus with a palpable mass. It is exquisitely tender. A CT scan confirmed incarcerated hernia under the direction of Dr. Beck. The patient noted a hernia in this area before, which was generally reducible. This was clearly incarcerated, possibly strangulated given tenderness and so on. She had been fluid resuscitated, given intravenous antibiotics, and now to undergo repair of the hernia and other indicated procedures including possible bowel resection if necessary. The risk of bleeding, infection, need for bowel resection, recurrence, and other unforeseen complications were reviewed with the patient and her significant other. She understands this and wished to proceed. FINDINGS: Indeed, there was incarcerated bowel within the hernia sac and a fair amount of edema, but no sign of ischemic change. The hernia was ultimately reduced, allowed for repair. Excision of the hernia sac was undertaken and the properitoneal space developed allowing for implantation of Prolene mesh in an underlay technique with fascial reapproximation transversely. She tolerated the procedure well. Blood loss was minimal. DESCRIPTION OF PROCEDURE: Electronically Signed By: JARED CARRILLO MD 07/23/25 1131 PATIENT NAME: MANDI ISIDRO OPERATIVE REPORT DATE OF : [birth year] REPORT #: [id number] PHYSICIAN: JARED CARRILLO MD PCP: CAMILA CORNELIUS MD REPORT IS CONFIDENTIAL AND NOT TO BE RELEASED WITHOUT AUTHORIZATION [facility] [address] [place], [place] [address] Signed The patient was brought to the operating room, given a general endotracheal anesthetic. Preoperative antibiotic meropenem had been given. Sequential compression device stockings were used. The abdomen was prepared with chlorhexidine solution and draped sterilely. A circumumbilical incision was made extending from the 12 o'clock to the 4 o'clock position and dissection carried through the dermis. Very thin dermis was noted with the underlying hernia sac quite obviously identified. Using blunt dissection, the herniated viscus could be dissected free of surrounding soft tissue. It took quite a bit of doing, but ultimately the fascial layer was identified and freed ultimately allowing for reduction of the incarcerated viscus, which did prove to be bowel based on relatively transparent hernia sac. Reduction of the contents was undertaken and the hernia sac was more fully developed from surrounding soft tissue (fascia). Properitoneal space was bluntly using blunt electrocautery dissection. Hernia sac was elevated and opened and omental adhesions to the hernia sac were noted. These were freed with electrocautery. Internal examination showed no sign of ischemic bowel. One segment of bowel directly below the defect was elevated and confirmed to be quite viable indeed. The base of the hernia sac was secured with a running 2-0 silk suture and redundant hernia sac amputated and passed for pathology. The properitoneal space was more fully bluntly developed. The hernia defect was approximately 4.2 cm. A segment of Prolene ProGrip mesh was secured in an underlay technique in the properitoneal space. The fascia was reapproximated with interrupted 0 Prolene suture in a vertical mattress configuration. 10 mL of 0.25% Marcaine with epinephrine injected locally. Russel's layer was reapproximated with interrupted 2-0 Vicryl. The skin was then closed with interrupted running subcuticular 3-0 Vicryl. Steri-Strips were applied. The patient was ultimately extubated and transferred to the recovery room in good condition having suffered no complications. Sponge, needle, and instrument counts were reported as correct x3. Jared Carrillo MD /MODL /[id number] cc: Camila Cornelius MD Electronically Signed By: JARED CARRILLO MD 07/23/25 1131 PATIENT NAME: MANDI ISIDRO OPERATIVE REPORT DATE OF : [birth year] REPORT #: [id number] PHYSICIAN: JARED CARRILLO MD PCP: CAMILA CORNELIUS MD REPORT IS CONFIDENTIAL AND NOT TO BE RELEASED WITHOUT AUTHORIZATION [address] [address] Signed Scott Beck Copies: ~ Electronically Signed By: JARED CARRILLO MD 07/23/25 1131 PATIENT NAME: MANDI ISIDRO OPERATIVE REPORT DATE OF : [birth year] REPORT #: [id number] PHYSICIAN: JARED CARRILLO MD PCP: CAMILA CORNELIUS MD REPORT IS CONFIDENTIAL AND NOT TO BE RELEASED WITHOUT AUTHORIZATION
--- NOTE | 2025-07-23 11:42 | NUR ---
MED REC COMPLETE
--- NOTE | 2025-07-23 14:43 | NUR ---
chart faxed to javier for pcp request
--- NOTE | 2025-07-24 17:38 | PATH ---
[facility] [address] [place], [place] [address] Signed SPECIMEN(S): A HERNIA SAC SPECIMEN SOURCE: A. HERNIA SAC CLINICAL HISTORY: Incarcerated umbilical hernia FINAL PATHOLOGIC DIAGNOSIS: Incarcerated umbilical hernia sac per requisition: - Benign soft tissue consistent with clinical hernia sac. JVR MICROSCOPIC EXAMINATION: Histologic sections of all submitted blocks are examined by light microscopy. These findings, together with the gross examination, support the pathologic diagnosis. GROSS DESCRIPTION: The specimen, labeled and designated "Bhaskar Isidro, incarcerated umbilical hernia sac per requisition," is received in formalin and consists of a 7 x 5.2 x 1.7 cm saccular portion of fibromembranous and fibroadipose tissue. There are no discrete areas of hemorrhage. There are no discrete masses or lesions. Php Mysql Developer sections are submitted in cassette A1. AA (under the direct supervision of a pathologist) The Gross Description was prepared using a voice recognition system. The report was reviewed for accuracy; however, sound-alike word errors, addition and/or deletions may occur. If there is any question about this report, please contact Client Services. ADDITIONAL NOTES: Immunohistochemical and/or in situ hybridization studies if performed in this case included appropriate positive controls that reacted as expected. This test was developed and its performance characteristics determined by [facility]. It has not been cleared or approved by the U.S. Food and Drug Administration. The FDA has determined that such clearance or approval is not necessary. This test is used for clinical purposes. It should not be regarded as investigational or for research. [facility] is certified under the Clinical Laboratory Improvement PATIENT NAME: MANDI ISIDRO PATHOLOGY DATE OF : [birth year] REPORT #: [id number] PHYSICIAN: MERRY PATHOLOGY PCP: DENNY CORNELIUS MD REPORT IS CONFIDENTIAL AND NOT TO BE RELEASED WITHOUT AUTHORIZATION [facility] [address] [place] [place] [address] Signed Amendments of 1988 (CLIA) as qualified to perform high complexity clinical laboratory testing. PERFORMING LABORATORY: Technical component was performed by [facility], [address] [place] [id number] (CLIA# [id number]). Professional interpretation was performed by [facility] - [place] [facility] - [address] [place] [id number] (CLIA#: [id number]). Diagnostician: Pavel Sierra MD Pathologist Electronically Signed 07/24/2025 Copies: ~ PATIENT NAME: MANDI ISIDRO PATHOLOGY DATE OF : [birth year] REPORT #: [id number] PHYSICIAN: MERRY PATHOLOGY PCP: DENNY CORNELIUS MD REPORT IS CONFIDENTIAL AND NOT TO BE RELEASED WITHOUT AUTHORIZATION
== END 2025-07-23 11:58 | disposition home or self-care (01) ==
LOC: ED 15:26 → MS 15:27 → ED 15:27 → MS 15:27 → ED 15:28 → MS 15:28
PROVIDERS: Emergency Medicine; ADMIT Surgery; ATTEND Surgery
PROC: 0WUF0JZ Supplement Abdominal Wall with Synthetic Substitute, Open Approach (ICD-10-PCS; principal; 2025-07-22 18:43)
DX: K42.0 Umbilical hernia with obstruction, without gangrene (principal); F17.210 Nicotine dependence, cigarettes, uncomplicated; Z88.5 Allergy status to narcotic agent
CPT/HCPCS: 36415; 74177; 80053; 81003; 83690; 84703; 85025; 96374; 96375; 96376; 99285-25; A9270; C1781; J0131; J1100; J1171; J1885; J2003; J2185; J2405; J2704; J3010; J3480; J3490; J7121; Q9967